=== PATIENT | male | born 1995 | race Caucasian/White ===

== ENCOUNTER 2020-05-14 09:48 | Outpatient (REF) | payer OTHER, SELFPAY ==
[2020-05-14 10:06] LABS: COVID-19 Test Negative (Negative)
== END 2020-05-14 09:49 | disposition home or self-care (01) ==
LOC: HO.LAB 09:48
PROVIDERS: Visit Provider Internal Medicine
DX: Z20.828 Contact with and (suspected) exposure to other viral communicable diseases (principal)
CPT/HCPCS: 87635

== ENCOUNTER 2020-05-18 10:30 | Outpatient (REF) | payer OTHER, SELFPAY ==
[2020-05-18 10:48] LABS: COVID-19 Test Negative (Negative)
== END 2020-05-18 10:31 | disposition home or self-care (01) ==
LOC: HO.LAB 10:30
PROVIDERS: Visit Provider Internal Medicine
DX: Z20.828 Contact with and (suspected) exposure to other viral communicable diseases (principal)
CPT/HCPCS: 87635

== ENCOUNTER 2020-07-24 13:03 | Outpatient (REF) | payer OTHER, SELFPAY ==
[2020-07-24 13:23] LABS: COVID-19 Test Negative (Negative); IDNOW Serial# 55D5AD1C
== END 2020-07-24 13:04 | disposition home or self-care (01) ==
LOC: HO.EMPCOV 13:03
PROVIDERS: Visit Provider Internal Medicine
DX: Z20.828 Contact with and (suspected) exposure to other viral communicable diseases (principal)
CPT/HCPCS: 87635; C9803

== ENCOUNTER 2020-08-23 14:38 | Emergency (ER) | payer OTHER, SELFPAY ==
--- NOTE | 2020-08-23 15:02 | XR_ITS ---
EXAMINATION: XR FOOT, LEFT CLINICAL INFORMATION: Pain. COMPARISON: None TECHNIQUE: AP, lateral, and oblique views of the left foot. FINDINGS: There is an oblique nondisplaced comminuted fracture proximal phalanx first digit mid to distal segment with likely extension to PIP articular surface. No other fracture seen. The ankle mortise and subtalar joints are normal. XR/XR foot LT min 3V IMPRESSION: Comminuted nondisplaced fracture mid and distal proximal phalanx fifth digit with likely extension to the PIP joint.
[2020-08-23 15:14] VITALS: BP 140/80; PULSE 68; RESP 18; TEMP 36.3; O2SAT 99; BMI 23.0
--- NOTE | 2020-08-23 15:31 | ED_ITS ---
HPI - Extremity Injury (Lower) General Chief Complaint: Extremity Injury, Lower Stated Complaint: left toe inj Time Seen by Provider: 08/23/20 15:02 Source: patient Mode of arrival: ambulatory Limitations: no limitations History of Present Illness HPI Narrative: Left great toe pain after stubbing it yesterday at home. Context: direct blow Associated symptoms: ambulatory Other symptoms: none Related Data Previous Rx's Medication Instructions Recorded lisdexamfetamine 20 mg capsule 20 mg PO DAILY #30 cap 05/13/20 dextroamphetamine-amphetamine 5 mg 5 mg PO DAILY 30 Days #30 tab 08/15/20 tablet ibuprofen 800 mg PO Q8H PRN #30 tab 08/23/20 Allergies Allergy/AdvReac Type Severity Reaction Status Date / Time No Known Allergies Allergy Verified 05/03/20 14:22 [No Known Allergies*] Review of Systems Review of Systems: Constitutional: Negative ENT/Mouth: Negative Cardiovascular: Negative Respiratory: Negative Gastrointestinal: Negative Musculoskeletal: No joint pain, No Myalgias, No Joint Swelling, as noted in HPI Skin: No Skin Lesions, No rash negative No Weakness, No Numbness, No Paresthesias, No Loss of Consciousness, No Dizziness, No Headache Heme/Lymph: Negative Endocrine: Negative Yes all other systems are reviewed and are negative PMFSH Past Medical History Medical History (Updated 08/23/20 @ 15:49 by Andrey Epstein NP) ADHD Surgical History (Updated 05/03/20 @ 14:23 by MIREYA Rodriguez) History of facial surgery Family History Family History (Updated 05/03/20 @ 14:24 by MIREYA Rodriguez) Father Substance abuse Mother Anxiety Sister Anxiety Brother Anxiety Depression Social History Social History Alcohol intake: unknown Smoking Status: Current every day smoker Use of substances other than those prescribed or required for medical reasons: No Advance Directives: No Advance Directives Information Provided: Yes Physical Exam Vital Signs: Vital Signs: Last Vital Signs Temp 97.4 F 08/23/20 15:14 Pulse 68 08/23/20 15:14 Resp 18 08/23/20 15:14 BP 140/80 H 08/23/20 15:14 Pulse Ox 99 08/23/20 15:14 Body Mass Index 23.0 Reviewed Const: General: cooperative and healthy appearing; No acute distress or intoxicated appearing Nutritional Appearance: average body habitus Orientation/consciousness: patient oriented x3 Skin: General skin exam: no rashes or lesions noted Neuro: General: patient oriented x3 Extrem: General: Yes normal to inspection Ankle/foot/toe images: 1. Slight ecchymosis MDM - Extremity Injury (Lower) Medical Records Attestation: I reviewed the patient's medical records. Lab Data Attestation: I reviewed the patient's lab results. Imaging Data Left foot x-ray: Radiologist's impression: [address] [address] ReportSigned Patient: Silverio PateMR#: [id number]: [id number]:[id number]/Sex: 25 / MADM Date: 08/23/20Loc: [facility].EDAttending Dr: Ordering Physician: Chanel Couch DO Date of Service: 08/23/20 Procedure(s): XR foot LT min 3V Accession Number(s): [id number] cc: Chanel Couch DO~ EXAMINATION: XR FOOT, LEFT CLINICAL INFORMATION: Pain. COMPARISON: None TECHNIQUE: AP, lateral, and oblique views of the left foot. FINDINGS: There is an oblique nondisplaced comminuted fracture proximal phalanx first digit mid to distal segment with likely extension to PIP articular surface. No other fracture seen. The ankle mortise and subtalar joints are normal. XR/XR foot LT min 3V IMPRESSION: Comminuted nondisplaced fracture mid and distal proximal phalanx fifth digit with likely extension to the PIP joint. Dictated By:GURMEET VERA MDSigned By:<Electronically signed by GURMEET VERA MD in OV>08/23/20 1529 DD/ 1502TD/TT: Criminalist Technician: [facility] [place] Discharge Plan Discharge Clinical Impression: Fracture of toe of left foot Qualifiers: Encounter type: initial encounter Toe: great toe Fracture type: closed Phalanx: distal Fracture alignment: nondisplaced Qualified Code(s): S92.425A - Nondisplaced fracture of distal phalanx of left great toe, initial encounter for closed fracture Patient Disposition: Home, Self-Care Instructions: Toe Fracture (ED) Prescriptions: New ibuprofen 800 mg tablet 800 mg PO Q8H PRN (Reason: pain) Qty: 30 RF: 0 No Action Vyvanse 20 mg capsule 20 mg PO DAILY Qty: 30 RF: 0 dextroamphetamine-amphetamine [Adderall] 5 mg tablet 5 mg PO DAILY 30 Days Qty: 30 RF: 0 Referrals: Nely Wayne MD [Physician] - 2 days Stand Alone Forms: Work/School Release
--- NOTE | 2020-08-23 15:52 | PC.NURSE ---
POST-OP SHOE APPLIED TO L FOOT
== END 2020-08-23 15:57 | disposition home or self-care (01) ==
PROVIDERS: Emergency Provider Emergency Medicine; PCP Nurse Practitioner Family
DX: S92.425A Nondisplaced fracture of distal phalanx of left great toe, initial encounter for closed fracture (principal); M79.672 Pain in left foot; Y29.XXXA Contact with blunt object, undetermined intent, initial encounter; Y93.9 Activity, unspecified; Y92.009 Unspecified place in unspecified non-institutional (private) residence as the place of occurrence of the external cause; Y99.9 Unspecified external cause status; Z79.899 Other long term (current) drug therapy; F17.200 Nicotine dependence, unspecified, uncomplicated; Z71.6 Tobacco abuse counseling
CPT/HCPCS: 73630; 99283

== ENCOUNTER → 2021-09-29 09:57 | Outpatient (BNVA) | payer OTHER, SELFPAY | PROVIDERS: Visit Provider Internal Medicine | DX: Z51.81 Encounter for therapeutic drug level monitoring (principal); F11.20 Opioid dependence, uncomplicated | CPT/HCPCS: 80305 ==

== ENCOUNTER → 2021-10-06 10:23 | Outpatient (BNVA) | payer OTHER, SELFPAY | PROVIDERS: Visit Provider Internal Medicine | DX: F11.20 Opioid dependence, uncomplicated (principal); Z51.81 Encounter for therapeutic drug level monitoring; Z79.899 Other long term (current) drug therapy | CPT/HCPCS: 80305 ==

== ENCOUNTER → 2021-10-15 10:43 | Outpatient (BNVA) | payer OTHER, SELFPAY | PROVIDERS: Visit Provider Internal Medicine | DX: Z51.81 Encounter for therapeutic drug level monitoring (principal); F11.20 Opioid dependence, uncomplicated | CPT/HCPCS: 80305 ==

== ENCOUNTER → 2021-10-29 10:48 | Outpatient (BNVA) | payer OTHER, SELFPAY | PROVIDERS: Visit Provider Internal Medicine | DX: F11.20 Opioid dependence, uncomplicated (principal); Z51.81 Encounter for therapeutic drug level monitoring; Z79.899 Other long term (current) drug therapy | CPT/HCPCS: 80305 ==

== ENCOUNTER → 2021-11-18 11:16 | Outpatient (BNVA) | payer OTHER, SELFPAY | PROVIDERS: Visit Provider Internal Medicine | DX: Z51.81 Encounter for therapeutic drug level monitoring (principal); F11.20 Opioid dependence, uncomplicated | CPT/HCPCS: 80305 ==

== ENCOUNTER → 2021-12-17 11:42 | Outpatient (BNVA) | payer OTHER, SELFPAY | PROVIDERS: Visit Provider Internal Medicine | DX: Z51.81 Encounter for therapeutic drug level monitoring (principal); F11.20 Opioid dependence, uncomplicated | CPT/HCPCS: 80305 ==

== ENCOUNTER → 2022-01-13 11:46 | Outpatient (BNVA) | payer OTHER, SELFPAY | PROVIDERS: Visit Provider Internal Medicine | DX: Z51.81 Encounter for therapeutic drug level monitoring (principal); F11.20 Opioid dependence, uncomplicated | CPT/HCPCS: 80305 ==

== ENCOUNTER → 2022-02-10 10:47 | Outpatient (BNVA) | payer OTHER, SELFPAY | PROVIDERS: Visit Provider Internal Medicine | DX: F11.20 Opioid dependence, uncomplicated (principal); Z51.81 Encounter for therapeutic drug level monitoring; Z79.899 Other long term (current) drug therapy | CPT/HCPCS: 80305 ==

== ENCOUNTER 2022-04-14 17:26 | Emergency (ER) | payer OTHER, SELFPAY ==
--- NOTE | ~2022-04-14 | XR_ITS ---
EXAMINATION: XR foot RT 2V, XR ankle RT 2V CLINICAL INFORMATION: Reason for Exam Foot and ankle pain. landing hard from high pole COMPARISON: None. TECHNIQUE: AP and oblique views right ankle; 3 views right foot FINDINGS: Right ankle: No acute fracture or dislocation. Ankle mortise is congruent and intact. Ankle and subtalar joint spaces are maintained. Right foot: No acute fracture or dislocation. Joint spaces throughout the foot are maintained. Alignment at Lisfranc joint is within normal limits. Small focus of chronic proliferative bone at the anterior lip of the tibial plafond noted on the lateral view. XR/XR foot RT 2V IMPRESSION: No acute fracture or dislocation identified.
--- NOTE | ~2022-04-14 | XR_ITS ---
EXAMINATION: XR foot RT 2V, XR ankle RT 2V CLINICAL INFORMATION: Reason for Exam Foot and ankle pain. landing hard from high pole COMPARISON: None. TECHNIQUE: AP and oblique views right ankle; 3 views right foot FINDINGS: Right ankle: No acute fracture or dislocation. Ankle mortise is congruent and intact. Ankle and subtalar joint spaces are maintained. Right foot: No acute fracture or dislocation. Joint spaces throughout the foot are maintained. Alignment at Lisfranc joint is within normal limits. Small focus of chronic proliferative bone at the anterior lip of the tibial plafond noted on the lateral view. XR/XR ankle RT 2V IMPRESSION: No acute fracture or dislocation identified.
[2022-04-14 17:37] VITALS: BP 137/82; PULSE 66; O2SAT 98
[2022-04-14 17:41] VITALS: BMI 23.0
--- NOTE | 2022-04-14 17:47 | ED.GENADULT ---
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 patietn had fire alarm repairer protective boots and helmet. patient denies hitting head or loss of consciousness. Patient denies any other trauma. Related Data Previous Rx's Medication Instructions Recorded lisdexamfetamine 20 mg capsule 20 mg PO DAILY #30 caps 05/13/20 (Vyvanse) dextroamphetamine-amphetamine 5 mg 5 mg PO DAILY 30 days #30 tabs 08/15/20 tablet (Adderall) ibuprofen 800 mg tablet 800 mg PO Q8H PRN pain #30 tabs 08/23/20 buprenorphine 300 mg/1.5 mL 300 mg (1.5 mL) subcut ONCE 30 03/23/22 solution,exten.rel.subcutaneous days #1.5 mL syringe (Sublocade) buprenorphine 8 mg-naloxone 2 mg 1 film sublingual DAILY 30 days 03/23/22 sublingual film (Suboxone) #30 ea naproxen 500 mg tablet 500 mg PO BID PRN pain 7 days #14 04/14/22 tabs prednisone 20 mg tablet 60 mg PO DAILY 5 days #15 tabs 04/14/22 Allergies Allergy/AdvReac Type Severity Reaction Status Date / Time No Known Allergies Allergy Verified 12/17/21 11:47 [No Known Allergies*] Review of Systems Review of Systems: Right ankle/foot pain PMFSH Past Medical History Medical History ADHD Opioid use disorder Surgical History History of facial surgery Family History Family History Father Substance abuse Mother Anxiety Sister Anxiety Brother Anxiety Depression Social History Social History Alcohol intake: unknown Patient Tobacco Use Status: Former Tobacco user Advance Directives: No Advance Directives Information Provided: Yes Physical Exam ED Vital Signs: Vital Signs - 24 hr 04/14/22 17:37 Pulse Rate 66 Blood Pressure 137/82 Pulse Oximetry 98 Oxygen Delivery Method Room Air BMI result Body Mass Index 23.0 Const General: cooperative, healthy appearing, comfortable, no acute distress, well developed and alert Orientation/consciousness: oriented to time and patient oriented x3 HENMT Head: Yes normal to inspection, Yes No palpable skull fracture present, Yes normocephalic, Yes atraumatic and No abrasion Eyes General: appearance normal, both eyes and all related structures Neck Neck: Yes normal visual inspection, Yes full ROM, Yes no lymphadenopathy, Yes no meningeal signs, Yes trachea midline, Yes supple, No anterior neck swelling and No tender Chest Chest palpation & inspection: normal inspection of the chest and normal palpation of entire chest wall Resp Effort & Inspection: normal respiratory effort and able to speak in complete sentences Auscultation: clear to auscultation bilaterally Cardio Jugular venous distension: no JVD Heart sounds: S1 normal heart sound present and S2 normal heart sound present GI Inspection: Yes normal to inspection and No abdominal wall ecchymosis Palpation (GI): Soft to palpation, not firm, nontender, no guarding and not rigid General: No CVA tenderness and Yes no CVA tenderness Back/Spine/Pelvis Back: no CVA tenderness, No CVA tenderness and No back tenderness Skin General skin exam: no rashes or lesions noted and elasticity normal Neuro General: oriented to time, patient oriented x3, gait normal, tone normal, no meningeal signs and CN's II-XI intact bilaterally Cranial nerves: Yes CN's II-XII intact bilaterally Extrem General: Yes normal to inspection and Yes full ROM Ankle/foot/toe images: 1. tenderness on palpation. negative for any crepitus, ecchymosis, or deformity. Motor/ neuro/vascular exam intact. Patient able to walk Psych Appearance: grossly normal, well kempt and not disheveled Course Course Course Narrative: Sent for xray of right ankle/foot Reevaluation(s) Reevaluation #1: Patient placed in Nic wrap. Patient discharged with steroids and pain medication. Patient informed to follow-up with primary care provider if there is no improvement or pain worsens. Time: 19:17 Medical Decision Making [facility] Narrative Medical decision making narrative: ankle/foot sprain Discharge Plan Discharge Clinical Impression: Ankle sprain, Foot sprain Patient Disposition: Home, Self-Care Instructions: Ankle Sprain (ED), Sprain (ED), How to Use an Elastic Bandage (ED), Foot Sprain (ED), R.I.C.E. Treatment (ED) Additional Instructions: return to the ED immediately for any swelling, bluish black discoloration, redness, numbness / tingling, coolness, warmth, calf pain, leg swelling, chest pain, shortness of breath, or any other concerning symptoms. Recommend follow-up with primary care provider if there is no improvement. Prescriptions: New prednisone 20 mg tablet 60 mg PO DAILY 5 Days Qty: 15 0RF naproxen 500 mg tablet 500 mg PO BID PRN (Reason: pain) 7 Days Qty: 14 0RF No Action Vyvanse 20 mg capsule 20 mg PO DAILY Qty: 30 0RF dextroamphetamine-amphetamine [Adderall] 5 mg tablet 5 mg PO DAILY 30 Days Qty: 30 0RF ibuprofen 800 mg tablet 800 mg PO Q8H PRN (Reason: pain) Qty: 30 0RF buprenorphine-naloxone [Suboxone] 8-2 mg film 1 film sublingual DAILY 30 Days Qty: 30 0RF Sublocade 300 mg/1.5 mL solution, extended rel syringe 300 mg subcut ONCE 30 Days Qty: 1.5 1RF Referrals: [facility] [Outside] (Right ankle/foot sprain) Stand Alone Forms: Work/School Release Interventions: ED Discharge Assessment Last Done: 04/14/22 19:44 Discharge Date/Time: 04/14/22 19:45 Print Language: Congolese
== END 2022-04-14 19:45 | disposition home or self-care (01) ==
PROVIDERS: Emergency Provider Emergency Medicine
DX: S93.401A Sprain of unspecified ligament of right ankle, initial encounter (principal); M25.572 Pain in left ankle and joints of left foot; X50.1XXA Overexertion from prolonged static or awkward postures, initial encounter; Y93.9 Activity, unspecified; Y92.9 Unspecified place or not applicable; Y99.0 Civilian activity done for income or pay; Z79.899 Other long term (current) drug therapy; Z87.891 Personal history of nicotine dependence
CPT/HCPCS: 73600; 73620; 99283

== ENCOUNTER → 2022-04-21 10:30 | Outpatient (BNVA) | payer OTHER, SELFPAY | PROVIDERS: Visit Provider Internal Medicine | DX: Z51.81 Encounter for therapeutic drug level monitoring (principal); F11.20 Opioid dependence, uncomplicated | CPT/HCPCS: 99212 ==

== ENCOUNTER → 2022-05-05 10:44 | Outpatient (BNVA) | payer OTHER, SELFPAY | PROVIDERS: Visit Provider Internal Medicine | DX: Z51.81 Encounter for therapeutic drug level monitoring (principal); F11.90 Opioid use, unspecified, uncomplicated | CPT/HCPCS: 96372; 99212 ==

== ENCOUNTER → 2022-06-02 13:02 | Outpatient (BNVA) | payer OTHER, SELFPAY | PROVIDERS: Visit Provider Internal Medicine | DX: F11.20 Opioid dependence, uncomplicated (principal); Z51.81 Encounter for therapeutic drug level monitoring; Z79.899 Other long term (current) drug therapy | CPT/HCPCS: 96372; 99212 ==

== ENCOUNTER → 2022-07-06 11:13 | Outpatient (BNVA) | payer OTHER, SELFPAY | PROVIDERS: Visit Provider Internal Medicine | DX: F11.20 Opioid dependence, uncomplicated (principal) | CPT/HCPCS: 96372; 99212 ==

== ENCOUNTER → 2022-08-05 08:58 | Outpatient (BNVA) | payer OTHER, SELFPAY | PROVIDERS: Visit Provider Nurse Practitioner Psychiatric/Mental Health | DX: F11.21 Opioid dependence, in remission (principal); Z51.81 Encounter for therapeutic drug level monitoring; Z79.899 Other long term (current) drug therapy | CPT/HCPCS: 80305; 96372 ==

== ENCOUNTER → 2022-09-02 09:01 | Outpatient (BNVA) | payer OTHER, SELFPAY | PROVIDERS: Visit Provider Nurse Practitioner Psychiatric/Mental Health | DX: Z51.81 Encounter for therapeutic drug level monitoring (principal); F11.21 Opioid dependence, in remission | CPT/HCPCS: 80305; 96372 ==

== ENCOUNTER 2022-09-23 10:04 | Outpatient (REF) | payer OTHER, SELFPAY ==
[2022-09-23 11:26] LABS: Alanine Aminotransferase 35 U/L (0-40); Albumin Level 4.6 g/dL (3.5-5.0); Alkaline Phosphatase 75 U/L (39-117); Aspartate Amino Transferase 29 U/L (5-37); Bilirubin Direct 0.2 mg/dL (0.0-0.5); Bilirubin Total 0.8 mg/dL (0.0-1.0); Total Protein 6.9 g/dL (6.5-8.0)
== END 2022-09-23 10:05 | disposition home or self-care (01) ==
LOC: HO.LAB 10:04
PROVIDERS: Visit Provider Nurse Practitioner Psychiatric/Mental Health
DX: Z79.899 Other long term (current) drug therapy (principal)
CPT/HCPCS: 36415; 80076

== ENCOUNTER → 2022-09-30 09:17 | Outpatient (BNVA) | payer OTHER, SELFPAY | PROVIDERS: Visit Provider Nurse Practitioner Psychiatric/Mental Health | DX: Z51.81 Encounter for therapeutic drug level monitoring (principal); F11.21 Opioid dependence, in remission | CPT/HCPCS: 80305; 96372 ==

== ENCOUNTER → 2022-10-30 08:53 | Outpatient (BNVA) | payer OTHER, SELFPAY | PROVIDERS: Visit Provider Nurse Practitioner Psychiatric/Mental Health | DX: F11.21 Opioid dependence, in remission (principal); Z51.81 Encounter for therapeutic drug level monitoring; Z79.899 Other long term (current) drug therapy | CPT/HCPCS: 80305; 96372 ==

== ENCOUNTER → 2022-12-17 11:12 | Outpatient (BNVA) | payer OTHER, SELFPAY | PROVIDERS: Visit Provider Nurse Practitioner Psychiatric/Mental Health | DX: F11.21 Opioid dependence, in remission (principal) | CPT/HCPCS: 96372 ==

== ENCOUNTER 2023-02-08 10:00 | Outpatient (AMB) | payer OTHER, SELFPAY ==
--- NOTE | 2023-02-08 10:02 | MHC.OFFVIS ---
Intake Vital Signs 02/08/23 10:06 BP 136/84 Blood Pressure Location Lt radial Position Sitting Pulse 93 Pulse Source Pulse Oximeter Pulse Oximetry (%) 98 Oxygen Delivery Method Room Air Intake Visit Reasons: SUB inj Intake Note: the patient is here for a mat visit Reconciliation Manager Required: No Allergies No Known Allergies [No Known Allergies*] Allergy (Verified 02/08/23 10:07) Do you need a note to return to daycare/school/sports/work: No HPI SUB inj HPI Details Patient presents for follow-up. Last injection December 17. Patient denies any withdrawal symptoms. Denies any cravings. Does not wish to have injection today would like to continue to move forward without it. Agreeable to continued follow-up for the next few months. Patient reports that he has a few leftover Suboxone at home and feels confident just knowing that he has those there should any issues arise. Very happy to share the of his daughter 1 month ago. [facility] Medical History ADHD Opioid use disorder Surgical History History of facial surgery Family History Father Substance abuse Mother Anxiety Sister Anxiety Brother Anxiety Depression Social History Alcohol intake: unknown Patient Tobacco Use Status: Former Tobacco user Review of Systems Const Reports as per HPI and Reports no additional complaints Physical Exam Vital Signs: Last Vital Signs Pulse 93 02/08/23 10:06 BP 136/84 02/08/23 10:06 Pulse Ox 98 02/08/23 10:06 Oxygen Delivery Method Room Air 02/08/23 10:06 Const General: cooperative and healthy appearing Psych Appearance: well kempt Speech and movement: Clear speech present Attitude: cooperative Thought process: Normal thought process present Insight: Good insight present (Psych) Judgement: Good judgement present (Psych) Results AMB 14 Panel Urine Drug Screen Urine Marijuana (THC) Negative Last Edit by Julianna Fischer CMA on 02/08/23 10:14 Urine Cocaine Positive Last Edit by Julianna Fischer CMA on 02/08/23 10:14 Urine Morphine Negative Last Edit by Julianna Fischer CMA on 02/08/23 10:14 Urine Methamphetamine Negative Last Edit by Julianna Fischer CMA on 02/08/23 10:14 Urine Amphetamine Negative Last Edit by Julianna Fischer CMA on 02/08/23 10:14 Urine Benzodiazepine Negative Last Edit by Julianna Fischer CMA on 02/08/23 10:14 Urine Barbiturates Negative Last Edit by Julianna Fischer CMA on 02/08/23 10:14 Urine Methadone Negative Last Edit by Julianna Fischer CMA on 02/08/23 10:14 Urine Buprenorphine Positive Last Edit by Julianna Fischer CMA on 02/08/23 10:14 Urine Tricyclic Antidepressant Negative Last Edit by Julianna Fischer CMA on 02/08/23 10:14 Urine MDMA Negative Last Edit by Julianna Fischer CMA on 02/08/23 10:14 Urine Oxycodone Negative Last Edit by Julianna Fischer CMA on 02/08/23 10:14 Urine Phencyclidine Negative Last Edit by Julianna Fischer CMA on 02/08/23 10:14 Urine Propoxyphene Negative Last Edit by Julianna Fischer CMA on 02/08/23 10:14 Results Reviewed Results Reviewed: Laboratory Last Values POC Urine Buprenorphine Positive 02/08/23 10:11 POC Urine Morphine Negative 02/08/23 10:11 POC Urine Oxycodone Negative 02/08/23 10:11 POC Urine Methadone Negative 02/08/23 10:11 POC Urine Propoxyphene Negative 02/08/23 10:11 POC Urine Barbiturates Negative 02/08/23 10:11 POC U Tricyclic Antidpr Negative 02/08/23 10:11 POC Urine PCP Negative 02/08/23 10:11 POC Ur Amphetamines Negative 02/08/23 10:11 POC Ur Methamphetamine Negative 02/08/23 10:11 POC Urine MDMA Negative 02/08/23 10:11 POC Ur Benzodiazepine Negative 02/08/23 10:11 POC Urine Cocaine Positive 02/08/23 10:11 POC Ur Marijuana (THC) Negative 02/08/23 10:11 Assessment & Plan Assessment & Plan (1) Opioid use disorder, moderate, in sustained remission: Code(s): F11.21 - Opioid dependence, in remission Plan: Follow-up 2 months via telehealth Encourage patient to call office should he need to be seen before then or present to the walk-in Relapse prevention discussion Orders: Orders AMB 14 Panel Urine Drug Screen Today Z51.81 - Encounter for therapeutic drug level monitoring Coding Level of Care Code Est Pt Level 3 (39802) Diagnoses Opioid use disorder, moderate, in sustained remission F11.21
[2023-02-08 10:06] VITALS: BP 136/84; PULSE 93; O2SAT 98
== END 2023-02-08 10:38 | disposition home or self-care (01) ==
PROVIDERS: Visit Provider Nurse Practitioner Psychiatric/Mental Health
DX: Z51.81 Encounter for therapeutic drug level monitoring (principal); F11.21 Opioid dependence, in remission
CPT/HCPCS: 99213

== ENCOUNTER → 2023-02-08 10:00 | Outpatient (BNVA) | payer OTHER, SELFPAY | PROVIDERS: Visit Provider Nurse Practitioner Psychiatric/Mental Health | DX: F11.20 Opioid dependence, uncomplicated (principal); Z51.81 Encounter for therapeutic drug level monitoring | CPT/HCPCS: 80305 ==

== ENCOUNTER 2023-04-05 09:00 | Outpatient (AMB) | payer OTHER, SELFPAY ==
--- NOTE | 2023-04-05 09:00 | MHC.AM.SUB ---
Intake Intake Visit Reasons: MAT Visit Intake Note: Patient presents for telehealth follow up Last sublocade injection 4 months ago. Denies any withdrawal sx, denies anxiety. Grateful for ease of transition off of buprenorphine No questions or concerns at this time Allergies No Known Allergies [No Known Allergies*] Allergy (Verified 02/08/23 10:07) [facility] Medical History ADHD Opioid use disorder Surgical History History of facial surgery Family History Father Substance abuse Mother Anxiety Sister Anxiety Brother Anxiety Depression Social History Alcohol intake: unknown Patient Tobacco Use Status: Former Tobacco user Review of Systems Const Reports as per HPI and Reports no additional complaints Assessment & Plan Assessment & Plan (1) Opioid use disorder, moderate, in sustained remission: Code(s): F11.21 - Opioid dependence, in remission Plan: encouraged to call office with any questions or concers follow up 2 months via telehealth Telehealth Telehealth Location of provider rendering services: practice address Location of patient: address on file Patient Identification confirmed using: Name, : Yes Telehealth method: voice only Patient verbally consented to treatment: Yes Patient verbally consented to billing insurance company: Yes Coding Level of Care Code Tele Est Pt Level 3 (41326) Diagnoses Opioid use disorder, moderate, in sustained remission F11.21
== END 2023-04-05 09:14 | disposition home or self-care (01) ==
LOC: HO.HCC 09:00
PROVIDERS: Visit Provider Nurse Practitioner Psychiatric/Mental Health
DX: F11.21 Opioid dependence, in remission (principal)
CPT/HCPCS: 99213

== ENCOUNTER → 2023-04-05 09:00 | Outpatient (BNVA) | payer OTHER, SELFPAY | PROVIDERS: Visit Provider Nurse Practitioner Psychiatric/Mental Health | DX: Z51.81 Encounter for therapeutic drug level monitoring (principal) ==

== ENCOUNTER 2023-06-14 09:04 | Outpatient (AMB) | payer OTHER, SELFPAY ==
--- NOTE | 2023-06-14 09:07 | MHC.AM.SUB ---
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 Opioid use disorder ADHD Surgical History History of facial surgery Family History Father Substance abuse Mother Anxiety Sister Anxiety Brother Anxiety Depression Social History Alcohol intake: unknown Patient Tobacco Use Status: Former Tobacco user Review of Systems Const Reports as per HPI and Reports no additional complaints Assessment & Plan Assessment & Plan (1) Opioid use disorder, moderate, in sustained remission: Code(s): F11.21 - Opioid dependence, in remission Plan: follow up 6 months encouraged to call office before then if necessary Telehealth Telehealth Location of provider rendering services: practice address Location of patient: address on file Patient Identification confirmed using: Name, : Yes Telehealth method: voice only Patient verbally consented to treatment: Yes Patient verbally consented to billing insurance company: Yes Coding Level of Care Code Tele Est Pt Level 3 (34910) Diagnoses Opioid use disorder, moderate, in sustained remission F11.21 Time Spent (min) 20
== END 2023-06-14 09:24 | disposition home or self-care (01) ==
LOC: HO.HCC 09:04
PROVIDERS: Visit Provider Nurse Practitioner Psychiatric/Mental Health
DX: F11.21 Opioid dependence, in remission (principal)
CPT/HCPCS: 99213

== ENCOUNTER → 2023-06-14 09:04 | Outpatient (BNVA) | payer OTHER, SELFPAY | PROVIDERS: Visit Provider Nurse Practitioner Psychiatric/Mental Health | DX: Z51.81 Encounter for therapeutic drug level monitoring (principal); F11.21 Opioid dependence, in remission ==

== ENCOUNTER 2025-01-12 10:55 | Outpatient (AMB) | payer OTHER, SELFPAY ==
--- NOTE | 2025-01-12 10:57 | A.OFFVIS_ITS ---
Vital Signs 01/12/25 11:02 Height 6 ft Weight 223 lb BMI 30.2 Pulse 95 Pulse Source Pulse Oximeter Pulse Oximetry (%) 97 Oxygen Delivery Method Room Air Intake Visit Reasons: MAT Allergies No Known Allergies (No Known Allergies*) Allergy (Verified 01/19/25 10:58) HPI HPI MAT: Details: This is an intake ,returning patient. He had been on Suboxone then Sublocade and now has been using Kratom extract two to three months ago and has $7,000 bill over last three months due to it. He ran out and has withdrawal symptoms. 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 He says doesnt know yet. He stopped using it. 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 ADHD Surgical History History of facial surgery Family History Father Substance abuse Mother Anxiety Sister Anxiety Brother Anxiety Depression Social History Alcohol intake: unknown Patient Tobacco Use Status: Former Tobacco user Review of Systems Const All systems reviewed & are unremarkable except as noted in HPI and below Physical Exam Vital Signs: Last Vital Signs Pulse 95 01/12/25 11:02 Pulse Ox 97 01/12/25 11:02 Oxygen Delivery Method Room Air 01/12/25 11:02 BMI result Body Mass Index 30.2 Const General: cooperative Orientation/consciousness: patient oriented x3 HEENT Head: Yes normal to inspection Mouth: Normal oral and palatal mucosa present Eyes General: appearance normal, both eyes and all related structures Pupils: Equal, round and reactive pupils present Resp Effort & Inspection: normal respiratory effort Cardio Rate: regular rate Rhythm: regular rhythm GI Palpation (GI): Soft to palpation and nontender General: Yes no CVA tenderness Back/Spine/Pelvis Back: no CVA tenderness Skin General skin exam: no rashes or lesions noted Neuro General: patient oriented x3 Cranial nerves: Yes CN's II-XII intact bilaterally and Yes Equal, round and reactive pupils present Extrem General: Yes normal to inspection Psych Appearance: grossly normal Assessment & Plan Assessment & Plan (1) ADHD: Code(s): F90.9 - Attention-deficit hyperactivity disorder, unspecified type Category: Medical Plan: na (2) Opioid use disorder: Comment: He is looking to get back into Suboxone Code(s): F11.90 - Opioid use, unspecified, uncomplicated Category: Medical Plan: Suboxone tid as before. Counseling See as scheduled. Medications: New buprenorphine-naloxone 8-2 mg (Suboxone) 1 film sublingual TID 21 ea 0RF 7 days Coding Level of Care Code Est Pt Level 4 (83073) Diagnoses ADHD F90.9 Opioid use disorder F11.90
[2025-01-12 11:02] VITALS: PULSE 95; O2SAT 97; BMI 30.2
--- OUTSIDE RECORDS SUMMARY | 2025-01-12 11:21 | XMS_ITS | Encounter Summary ---
Author Organization [facility] Address [address] [place] [address] Phone Care Team Providers Care Custom Wood Stair Builder Name Role Phone Holger Hamilton MD Primary Care Provider Atul matthews Encounter Details Date Type Department Care Team (Late st Contact Info) Description 05/29/2011 Documentation [facility] Family Medicine [address] [place] [address] Family Medicine, Physician [address] [place], [place] [id number] Social History Tobacco Use Types Packs/Day Years Used Date Smoking Tobacco: Never Assessed Sex and Gender Information Value Date Recorded Sex Assigned at Not on file Legal Sex Male 4:52 PM EDT Gender Identity Not on file Sexual Orientation Not on file documented as of this encounter Plan of Treatment Not on file documented as of this encounter Visit Diagnoses Not on filedocumented in this encounter Care Teams Custom Wood Stair Builder Relationship Specialty Start Date End Date Holger Hamilton MD PCP - General 03/05/17 11/01/22 documented as of this encounter
== END 2025-01-12 11:53 | disposition home or self-care (01) ==
LOC: HO.HCC 10:55
PROVIDERS: Visit Provider Internal Medicine
DX: F90.9 Attention-deficit hyperactivity disorder, unspecified type (principal); F11.90 Opioid use, unspecified, uncomplicated
CPT/HCPCS: 99214

== ENCOUNTER 2025-01-19 10:56 | Outpatient (AMB) | payer OTHER, SELFPAY ==
--- NOTE | 2025-01-19 10:54 | A.OFFVIS_ITS ---
Vital Signs 01/19/25 10:58 Height 6 ft Pulse 84 Pulse Source Pulse Oximeter Pulse Oximetry (%) 98 Oxygen Delivery Method Room Air Intake Visit Reasons: MAT Allergies No Known Allergies (No Known Allergies*) Allergy (Verified 01/19/25 10:58) HPI HPI MAT: Details: He is here with his daughter,Toni. He has been doing well. FOR[facility]LY [facility], [facility] Medical History Opioid use disorder Other alf (current) drug therapy ADHD Surgical History History of facial surgery Family History Father Substance abuse Mother Anxiety Sister Anxiety Brother Anxiety Depression Social History Alcohol intake: unknown Patient Tobacco Use Status: Former Tobacco user Review of Systems Const All systems reviewed & are unremarkable except as noted in HPI and below Physical Exam Vital Signs: Last Vital Signs Pulse 84 01/19/25 10:58 Pulse Ox 98 01/19/25 10:58 Oxygen Delivery Method Room Air 01/19/25 10:58 Const General: cooperative Assessment & Plan Assessment & Plan (1) Opioid use disorder: Comment: He is doing well with suboxone He is not using kratom. Code(s): F11.90 - Opioid use, unspecified, uncomplicated Category: Medical Plan: Would continue Suboxone Plan See as scheduled. Medications: New buprenorphine ER (Sublocade) 300 mg (1.5 mL) subcut QWEEK 1.5 mL 0RF buprenorphine-naloxone 8-2 mg (Suboxone) 1 film sublingual TID 90 ea 0RF 30 days buprenorphine ER (Sublocade) 300 mg (1.5 mL) subcut .monthly 1.5 mL 0RF buprenorphine ER (Sublocade) 300 mg (1.5 mL) subcut .monthly 1.5 mL 0RF 2 doses Coding Level of Care Code Est Pt Level 3 (39406) Diagnoses Opioid use disorder F11.90
[2025-01-19 10:58] VITALS: PULSE 84; O2SAT 98
--- OUTSIDE RECORDS SUMMARY | 2025-01-19 12:04 | XMS_ITS | Encounter Summary ---
Author Organization [facility] Address [address] [place] [address] Phone Care Team Providers Care Lactation Specialist Name Role Phone Holger Hamilton MD Primary Care Provider Atul matthews Encounter Details Date Type Department Care Team (Late st Contact Info) Description 05/29/2011 Documentation [facility] [place] [address] [place] [address] Family Medicine, Physician [address] [place], [place] [id number] Social History Tobacco Use Types Packs/Day Years [...] on filedocumented in this encounter Care Teams Lactation Specialist Relationship Specialty Start Date End Date Holger Hamilton MD PCP - General 03/05/17 11/01/22 documented as of this encounter
== END 2025-01-19 11:25 | disposition home or self-care (01) ==
LOC: HO.HCC 10:56
PROVIDERS: Visit Provider Internal Medicine
DX: F11.90 Opioid use, unspecified, uncomplicated (principal)
CPT/HCPCS: 99213

== ENCOUNTER 2025-02-19 10:12 | Outpatient (AMB) | payer OTHER, SELFPAY ==
[2025-02-19 10:17] VITALS: PULSE 108; O2SAT 98; BMI 30.1
--- NOTE | 2025-02-19 10:17 | A.OFFVIS_ITS ---
Vital Signs 02/19/25 10:17 Height 6 ft Weight 222 lb BMI 30.1 Pulse 108 H Pulse Source Pulse Oximeter Pulse Oximetry (%) 98 Oxygen Delivery Method Room Air Intake Visit Reasons: Injection Allergies No Known Allergies (No Known Allergies*) Allergy (Verified 02/19/25 10:18) HPI Comments Details: Unfortunately he has gone back to using kratom and is spending lots of money on it. He took kratom yesterday and a suboxone today [facility] Medical History Opioid use disorder Other senior living (current) drug therapy ADHD Surgical History History of facial surgery Family History Father Substance abuse Mother Anxiety Sister Anxiety Brother Anxiety Depression Social History Alcohol intake: unknown Patient Tobacco Use Status: Former Tobacco user Review of Systems Const All systems reviewed & are unremarkable except as noted in HPI and below Physical Exam Vital Signs: Last Vital Signs Pulse 108 H 02/19/25 10:17 Pulse Ox 98 02/19/25 10:17 Oxygen Delivery Method Room Air 02/19/25 10:17 BMI result Body Mass Index 30.1 Const General: cooperative Office Meds Sublocade 300 mg/1.5 mL solution,extended release subcutaneous syringe Performing Provider: Fátima Flores MD Performing Location: [facility] Documented (not given) by: Fátima Flores MD on 02/19/25 16:35 Reason Not Given: Patient Contraindications Comments: Lot [id number],10/24/2025 [id number] Assessment & Plan Assessment & Plan (1) Opioid use disorder: Comment: He is using kratom . Code(s): F11.90 - Opioid use, unspecified, uncomplicated Category: Medical Plan: No Sublocade today. It was returned to pharmacy. He will get this when stable on Suboxone. Orders: Orders AMB Buprenorphine Injection - Patient Supplied 02/19/25 F11.90 - Opioid use, unspecified, uncomplicated Referrals Counseling Referral F11.90 - Opioid use, unspecified, uncomplicated Medications: New buprenorphine-naloxone 8-2 mg (Suboxone) 1 film sublingual TID 21 ea 0RF 7 days Coding Level of Care Code Est Pt Level 3 (07216) Diagnoses Opioid use disorder F11.90
--- OUTSIDE RECORDS SUMMARY | 2025-02-19 11:15 | XMS_ITS | Encounter Summary ---
Author Organization [facility] Address [address] [place] [address] Phone Care Team Providers Care Medical Assistant Name Role Phone Holger Hamilton MD Primary Care Provider Atul matthews Encounter Details Date Type Department Care Team (Late st Contact Info) Description 05/29/2011 Documentation [facility] [place] Family Medicine [address] [place] [address] Family Medicine, Physician [address] [place], [place] [address] Social History Tobacco Use Types Packs/Day Years [...] on filedocumented in this encounter Care Teams Medical Assistant Relationship Specialty Start Date End Date Holger Hamilton MD PCP - General 03/05/17 11/01/22 documented as of this encounter
--- OUTSIDE RECORDS SUMMARY | 2025-02-19 11:15 | XMS_ITS | Clinical Summary ---
Author Organization [facility] Address [address] [facility] [address] [place] [address] Phone Care Team Providers Care Back Feeder Plywood Layup Line Name Role Phone Simon Price MD Primary Care Provider [phone] Allergies No known active allergies Medications No known medications Active Problems Problem Noted Date Diagnosed Date Routine general medical exam ination at a health care facility 06/25/2023 Assessment & Plan (06/26/2024 2:07 PM EST): Exam is unremarkable, normal height and weight with muscular build. BMI appears to be somewhat over stated. Labs reviewed from last year and found to be within target range on lipid panel electrolytes kidney function blood sugar and blood counts. Since he does not have any symptoms we can hold off on lab work today and review in 1 years time. Assessment & Plan (06/25/2023 2:26 PM EST): Exam is unremarkable for pathology. We can see the patient once a year and will do labs today for baseline. Flu shot will be administered. Immunizations Immunization Administration Dates Next Due DTP 1995,1995,1995 DTaP 02/23/2000,10/25/1996 Hepatitis B 1995,1995,1995 Hib,PRP-T 1995,1995,1995 IPV 02/23/2000 Influenza Quadrivalent MDCK Preservative Free IM 04/25/2019 Influenza Quadrivalent Preservative Free IM 12/07/2022 Influenza Quadrivalent w/ Preservative IM 2016 Influenza Trivalent Preservative Free IM 024 Influenza Trivalent w/ Preservative IM 6 MMR 04/21/1999,06/12/1996 Meningococcal MPSV4 07/16/2009 Polio - OPV 1995,1995,1995 Td (adult),2 Lf Tetanus Toxo id, PF, Adsorbed 06/06/2017,04/02/2009 Varicella 07/16/2009,03/13/1996 Family History Medical History Relation Comments Drug abuse Father Lung cancer Paternal Grandfather Lung cancer Paternal Grandmother Relation Status Comments Brother Alive Father Mother Alive Paternal Grandfather Paternal Grandmother Sister Alive Social History Tobacco Use Types Packs/Day Years Used Date Smoking Tobacco: Never Passive Smoke Exposure: Never Smokeless Tobacco: Never Tobacco Cessation:Counseling Given: Not Answered Alcohol Use Standard Drinks/Week Comments Yes 10 (1 standard drink = 0.6 oz pu re alcohol) Child or Family Care Answer Date Record ed Do you have problems with on e of the following making it difficult for you to work, study, or receive health care? No 06/20/2024 Education Answer Date Recorded Are you interested in help w ith more adult education (for example, completing high school, GED, job training, learning the Croatian language, technical skills, or developing parenting skills)? No 06/20/2024 Are you concerned about learning? Not on file 06/20/2024 No 06/20/2024 Yes 06/20/2024 Food Answer Date Recorded Within the past 6 months we worried whether our food would run out before we got money to buy more. Never True 06/20/2024 Within the past 6 months the food we bought just didn't last and we didn't have enough money to get more. Never True Residential Stability Answer Date Recor ded What is your housing situation today? I have edmundo sing 06/20/2024 How many times have you move d in the past 12 months? Zero (I did not move) 06/20/2024 Paying for Meds Answer Date Recorded Do you have trouble paying for medicines? No 06/20/2024 Paying Utility Bills Answer Date Record ed Do you have trouble paying your heating or elect ricity bill? No 06/20/2024 Transportation Answer Date Recorded Has the lack of transportati on kept you from medical appointments or from getting medications? No 06/20/2024 Unemployment Answer Date Recorded Are you currently unemployed or working on a part-time or temporary basis, and looking for work? No 06/20/2024 Digital Access Answer Date Recorded No 06/20/2024 Yes 06/20/2024 Do you have reliable internet access at home? Ye s 06/20/2024 Do you have a device (e.g., phone, tablet, computer) with a working camera? Yes 06/20/2024 Intimate Partner Violence Answer Date R ecorded Denied Basic Needs Not on file 06/20/2024 In the past 12 months have y ou been in a relationship with a person who hurts, threatens, or tries to control you? No 06/20/2024 Worried food would run out Not on file 06/20 In the past 12 months have y ou been in a relationship with a person who hurts, threatens, or tries to control you? No 06/20/2024 Sex and Gender Information Value Date Recorded Sex Assigned at Not on file Legal Sex Male 10:46 AM EST Gender Identity Not on file Sexual Orientation Not on file Last Filed Vital Signs Vital Sign Reading Time Taken Comments Blood Pressure 110/80 06/26/2024 1:18 PM EST Pulse 75 06/26/2024 1:18 PM EST Temperature 36.6 C (97.8 F) 06/26/2024 1:18 PM EST Respiratory Rate 18 06/26/2024 1:18 PM EST Oxygen Saturation 98% 06/26/2024 1:18 PM EST Inhaled Oxygen Concentration - - Weight 99.1 kg (218 lb 6.4 oz) 06/26/2024 1:18 P M EST Height 181.3 cm (5' 11.38 ) 06/26/2024 1:[address] Body Mass Index 30.14 06/26/2024 1:18 PM EST Plan of Treatment Upcoming Encounters Date Type Department Care Team (Late st Contact Info) Description 06/29/2025 9:45 AM EST Office Visit Emidgio Ordonez [facility] Internal Medicine [address] [facility] [place] [address] Simon Price MD [address] [place] [address] Health Maintenance Due Date Last Done Comments COVID-19 VACCINE (2023-2 5 season) 2024 08/19/2021, 08/06/2020, 07/14/2020 DEPRESSION SCREENING 06/20/2025 06/20/2024, 06/25/2023 Adult Td,Tdap Booster 06/06/2027 06/06/2017 , 04/02/2009 HIB VACCINES Aged Out 1995, 1995, 1995 No longer eligible based on patient's age to complete this topic MENINGOCOCCAL VACCINES (ACWY) Aged Out 07/16/2009 No longer eligible based on patient's age to complete this topic HEPATITIS C SCREENING Completed 06/25/2023 HIV ONE-TIME SCREENING (18-6 5 YEARS) Completed 06/25/2023 SMOKING STATUS SCREENING (On ce After 26 Yrs) Completed 06/26/2024 HEPATITIS A VACCINES Aged Out No long er eligible based on patient's age to complete this topic MENINGOCOCCAL VACCINES (B) Aged Out N o longer eligible based on patient's age to complete this topic PNEUMOCOCCAL VACCINES (0-49 years) Aged Out No longer eligible b ased on patient's age to complete this topic Medical Devices Not on file Procedures Procedure Name Priority Date/Time Associated Diagnosis Comments HEPATITIS C ANTIBODY, QUALITATIVE Routine 06/25/2023 2:29 PM EST Need for hepatitis C screening test from Last 3 Months or Most Recently Relevant to Health Maintenance Results * Hepatitis C antibody, qualitative (06/25/2023 2:29 PM EST) HCV NON-REACTIV E NON-REACTI VE [facility] Blood 06/25/2023 2:29 PM EST 06/25/2023 2:34 PM EST Simon Price MD LAB BLOOD ORDERABLES Final Isrrael lai [address] [place] [address] from Last 3 Months or Most Recently Relevant to Health Maintenance Insurance [facility] Care Teams Back Feeder Plywood Layup Line Relationship Specialty Start Date End Date Simon Price MD [address] [place] [id number] PCP - General Internal Medicine 06/25/23 Additional Source Comments The information contained in this document represents components of the legal health record. It is not the complete legal health record.[facility]
== END 2025-02-19 11:01 | disposition home or self-care (01) ==
LOC: HO.HCC 10:12
PROVIDERS: Visit Provider Internal Medicine
DX: F11.90 Opioid use, unspecified, uncomplicated (principal)

== ENCOUNTER → 2025-02-19 10:12 | Outpatient (BNVA) | payer OTHER, SELFPAY | PROVIDERS: Visit Provider Internal Medicine | DX: F11.90 Opioid use, unspecified, uncomplicated (principal) | CPT/HCPCS: 96372 ==

== ENCOUNTER 2025-03-16 14:52 | Outpatient (AMB) | payer OTHER, SELFPAY ==
--- OUTSIDE RECORDS SUMMARY | 2025-03-16 14:55 | XMS_ITS | Clinical Summary ---
Author Organization [facility] Address [address] [facility] [address] [place] [address] Phone Care Team Providers Care Brake Operator Heavy Duty Name Role Phone Simon Price MD Primary Care Provider [phone] Allergies No known active allergies Medications No [...] DTaP 02/23/2000,10/25/1996 Hepatitis B 1995,1995,1995 Hib,PRP-T 1995,1995,1995 INFLUENZA, SPLIT VIRUS, TRIVALENT PF 06/26/2024 INFLUENZA, SPLIT VIRUS, TRIV ALENT W/ PRESERVATIVE IM 07/13/2016 IPV 02/23/2000 Influenza Quadrivalent MDCK Preservative Free IM 04/25/2019 Influenza Quadrivalent Preservative Free IM 12/07/2022 Influenza Quadrivalent w/ Preservative IM 2016 MMR 04/21/1999,06/12/1996 Meningococcal MPSV4 07/16/2009 Polio - [...] high school, GED, job training, learning the Guamanian language, technical skills, or developing parenting skills)? [...] kg (218 lb 6.4 oz) 06/26/2024 1:18 PM EST Height 181.3 cm (5' 11.38 ) 06/26/2024 1:[address] Body Mass Index 30.14 06/26/2024 1:18 PM EST Plan of Treatment Upcoming Encounters Date Type Department Care Team (Late st Contact Info) Description 06/29/2025 9:45 AM EST Office Visit Emigdio Ordonez [facility] Internal Medicine [address] [place] [address] Simon Price MD [address] [facility] [place] [address] [email or web address] Health Maintenance Due Date Last Done Comments [...] PM EST) HCV NON-REACTIV E NON-REACTI VE [facility] Blood 06/25/2023 2:29 PM EST 06/25/2023 2:34 PM EST us Simon Price MD LAB BLOOD ORDERABLES Final Resul t [address] [address] from Last 3 Months or Most Recently Relevant to Health Maintenance Insurance [facility] Care Teams Brake Operator Heavy Duty Relationship Specialty Start Date End Date Simon Price MD [address] [place] [id number] PCP - General Internal Medicine 06/25/23 Additional Source Comments The information contained in this document represents components of the legal health record. It is not the complete legal health record.[facility]
--- OUTSIDE RECORDS SUMMARY | 2025-03-16 14:55 | XMS_ITS | Encounter Summary ---
Author Organization [facility] Address [address] [place] [address] Phone Care Team Providers Care Speck Dyer Name Role Phone Holger Hamilton MD Primary Care Provider Atul matthews Encounter Details Date Type Department Care Team (Late st Contact Info) Description 05/29/2011 Documentation [facility] [place] Medicine [address] [place] [address] Family Medicine, Physician [address] [place], [place] [address] Social History Tobacco Use Types Packs/Day Years [...] on filedocumented in this encounter Care Teams Speck Dyer Relationship Specialty Start Date End Date Holger Hamilton MD PCP - General 03/05/17 11/01/22 documented as of this encounter
--- NOTE | 2025-03-16 15:09 | A.OFFVIS_ITS ---
Intake Visit Reasons: Vasectomy consult Intake Note: New patient presents today for initial visit for vasectomy consult Urology Medication:None Blood Thinner:None Antibiotic Allergies:None Allergies No Known Allergies (No Known Allergies*) Allergy (Verified 03/16/25 15:10) HPI Comments Details: Silverio is here for vasectomy counselling. He has 2 children. PMH- ADHD, Opiod use disorder. Vasectomy procedure was discussed at length with the patient. He was informed that vasectomy is a safe, permanent, and effective form of control but there are risks involved. It may involve risk of hematoma, procedure failure which is rare, sperm granuloma which may cause mild pain, and congestion which may cause sense of pressure and generally resolves after several weeks. Also discussed is the reported post vasectomy pain syndrome with chronic testicular pain which is uncommon <5% The patient was advised that it is necessary to use other types of control methods for > 12 weeks and until we send semen for analysis to make sure there is no more sperm in the semen. Will schedule out patient procedure with Dr. 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 ADHD Surgical History History of facial surgery Family History Father Substance abuse Mother Anxiety Sister Anxiety Brother Anxiety Depression Social History Alcohol intake: unknown Patient Tobacco Use Status: Former Tobacco user Review of Systems Const All systems reviewed & are unremarkable except as noted in HPI and below Reports no additional complaints Eyes Reports no additional complaints ENT Reports no additional complaints Card Reports no additional complaints Resp Reports no additional complaints GI Reports no additional complaints Reports as per HPI Musc Reports no additional complaints Skin/Breast Reports system reviewed and no additional complaints, except as documented Neuro Reports no additional complaints Psych Reports no additional complaints Endo Reports no additional complaints [place]/Lymph Reports no additional complaints Aller/Immun Reports no additional complaints Physical Exam Const General: healthy appearing, no acute distress and well developed Orientation/consciousness: patient oriented x3 HEENT Head: Yes normocephalic and Yes atraumatic Eyes Conjunctivae: conjunctivae normal Neck Neck: Yes normal visual inspection Chest Chest palpation & inspection: normal inspection of the chest Resp Effort & Inspection: normal respiratory effort GI Inspection: Yes normal to inspection Neuro General: patient oriented x3 Psych Appearance: grossly normal Affect: normal affect Assessment & Plan Assessment & Plan (1) Anxiety about health: Code(s): R45.89 - Other symptoms and signs involving emotional state Category: Medical (2) Encounter for vasectomy counseling: Code(s): Z. - Encounter for other general counseling and advice on contraception Category: Medical Plan Out patient vasectomy with Dr. Barbour Patient Instructions: The patient had an opportunity to ask questions regarding treatment plan. The patient expressed understanding and agreement with the above treatment plan. The patient is aware they should contact our office by phone for worsening of their current condition or the appearance of new symptoms. Compliance is encouraged with any medications and followup testing that is ordered. It is a privilege to be allowed the opportunity to participate in the urologic care of your patient. If you have any questions or concerns regarding treatment for the above conditions please do not hesitate to contact me. The office telephone contact is [phone]. This note is constructed in part using voice recognition software. While every effort has been made to ensure accuracy home care companion errors may have been included. Yours sincerely, Дмитрий Duong MD Coding Level of Care Code New Pt Level 4 (29357) Diagnoses Anxiety about health R45.89 Encounter for vasectomy counseling Z30.
== END 2025-03-16 15:43 | disposition home or self-care (01) ==
LOC: HO.HUSH 14:53
PROVIDERS: Visit Provider Urology
DX: R45.89 Other symptoms and signs involving emotional state (principal); Z30.09 Encounter for other general counseling and advice on contraception
CPT/HCPCS: 99204

== ENCOUNTER 2025-04-13 15:21 | Outpatient (AMB) | payer OTHER, SELFPAY ==
--- OUTSIDE RECORDS SUMMARY | 2025-04-13 15:23 | XMS_ITS | Encounter Summary ---
Author Organization [facility] Address [address] [place] [address] Phone Care Team Providers Care Embedded Software Engineer Name Role Phone Holger Hamilton MD Primary Care Provider Atul matthews Encounter Details Date Type Department Care Team (Late st Contact Info) Description 03/11/2017 Conversion Encounter [facility] - [address] [address] Social History Tobacco Use Types Packs/Day Years Used Date Smoking Tobacco: Never Comments:Never smoker Sex and Gender Information Value Date Recorded Sex Assigned at Not on file Legal Sex Male 4:52 PM EDT Gender Identity Not on file Sexual Orientation Not on file documented as of this encounter Plan of Treatment Not on file documented as of this encounter Visit Diagnoses Not on filedocumented in this encounter Care Teams Embedded Software Engineer Relationship Specialty Start Date End Date Holger Hamilton MD PCP - General 03/05/17 11/01/22 documented as of this encounter
--- OUTSIDE RECORDS SUMMARY | 2025-04-13 15:23 | XMS_ITS | Encounter Summary ---
Author Organization [facility] Address [address] [place] [address] Phone Care Team Providers Care Chipper Machine Operator Name Role Phone Holger Hamilton MD Primary Care Provider Atul matthews Encounter Details Date Type Department Care Team (Late st Contact Info) Description 09/24/2010 Documentation [facility] [place] [address] [place] [address] Family Medicine, Physician [address] [place], [place] [address] Social History Tobacco Use Types Packs/Day Years [...] on filedocumented in this encounter Care Teams Chipper Machine Operator Relationship Specialty Start Date End Date Holger Hamilton MD PCP - General 03/05/17 11/01/22 documented as of this encounter
--- OUTSIDE RECORDS SUMMARY | 2025-04-13 15:23 | XMS_ITS | Encounter Summary ---
Author Organization [facility] Address [address] [place] [address] Phone Care Team Providers Care Roll Up Operator Name Role Phone Holger Hamilton MD Primary Care Provider Atul matthews Encounter Details Date Type Department Care Team (Late st Contact Info) Description 05/29/2011 Documentation [facility] [place] [address] [place] [address] Family Medicine, Physician [address] [place], [place] [address] Social History Tobacco Use Types Packs/Day Years [...] on filedocumented in this encounter Care Teams Roll Up Operator Relationship Specialty Start Date End Date Holger Hamilton MD PCP - General 03/05/17 11/01/22 documented as of this encounter
--- OUTSIDE RECORDS SUMMARY | 2025-04-13 15:23 | XMS_ITS | Clinical Summary ---
Author Organization [facility] Address [address] [place] [address] Phone Care Team Providers Care Career Education Teacher Name Role Phone Unavailable Primary Care Provider Unavailabl e Immunizations Immunization Administration Dates Next Due DTP 1995,1995,1995 DTaP 5 02/23/2000,10/25/1996 Hep B, ped/adol 1995,1995,1995 Hib (PRP-T) 1995,1995,1995 IPV 02/23/2000 MMR 04/21/1999,06/12/1996 Meningococcal Polysaccharide 07/16/2009 OPV 1995,1995,1995 Td (adult) (MBL), 2 Lf tetan us toxoid, PF, adsorbed 04/02/2009 Varicella 07/16/2009,03/13/1996 Family History Relation Name Status Comments Brother Alive Brother: Anxiet y / Depression, Alive and well Father Alive Father: Alive a nd well Mother Alive Mother: Hyperte nsion Other Family history of Asthma Paternal Grandfather Alive Paterna l grandfather: CAD, high cholesterol Sister Alive Sister: Alive a nd well Social History Tobacco Use Types Packs/Day Years Used Date Smoking Tobacco: Never Comments:Never smoker Sex and Gender Information Value Date Recorded Sex Assigned at Not on file Legal Sex Male 4:52 PM EDT Gender Identity Not on file Sexual Orientation Not on file Last Filed Vital Signs Vital Sign Reading Time Taken Comments Blood Pressure 126/59 12/05/2013 12:00 AM EDT Pulse - - Temperature 36.7 C (98 F) 12/05/2013 12:00 AM EDT Respiratory Rate - - Oxygen Saturation - - Inhaled Oxygen Concentration - - Weight 86.5 kg (190 lb 9.6 oz) 12/05/2013 12:00 AM EDT Height 178.4 cm (5' 10.25 ) 06/14/2013 12:00 AM EST Body Mass Index 27.15 06/14/2013 12:00 AM EST Plan of Treatment Health Maintenance Due Date Last Done Comments DTaP,Tdap,and Td Vaccines (6 - Tdap) 04/03/2009 04/02/2009, 02/23/2000, 10/25/1996, Additional history exists HPV Vaccines (1 - 3-dose SCDM series) 2022 Influenza Vaccines (#1) 2025 COVID-19 Vaccine (2023- season) 2025 HIB Vaccines Aged Out 1995, 06/26, 1995 No longer eligible based on patient's age to complete this topic Hepatitis B Vaccines Completed 1995, 1995, 1995 MMR Vaccines Completed 04/21/1999, 06/12/1996 IPV Vaccines Completed 02/23/2000, 08/27, 1995, Additional history exists Varicella Vaccines Completed 07/16/2009, 03/13/1996 Hepatitis A Vaccines Aged Out No long er eligible based on patient's age to complete this topic Men B Vaccine Aged Out No longer elig ible based on patient's age to complete this topic Meningococcal Vaccine Aged Out No michael andree eligible based on patient's age to complete this topic Pneumococcal Vaccine Aged Out No long er eligible based on patient's age to complete this topic
--- OUTSIDE RECORDS SUMMARY | 2025-04-13 15:23 | XMS_ITS | Encounter Summary ---
Author Organization [facility] Address [address] [place] [address] Phone Care Team Providers Care Gambling Dealer Name Role Phone Holger Hamilton MD Primary Care Provider Atul matthews Encounter Details Date Type Department Care Team (Late st Contact Info) Description 08/18/2010 Documentation [facility] [place] Family Medicine [address] [place] [address] Family Medicine, Physician [address] [place], [place] [id number] Social History Tobacco Use Types Packs/Day Years [...] on filedocumented in this encounter Care Teams Gambling Dealer Relationship Specialty Start Date End Date Holger Hamilton MD PCP - General 03/05/17 11/01/22 documented as of this encounter
--- OUTSIDE RECORDS SUMMARY | 2025-04-13 15:23 | XMS_ITS | Clinical Summary ---
Author Organization [facility] Address [address] [employer] [facility] [address] [place] [address] Phone Care Team Providers Care C Web Developer Name Role Phone Simon Price MD Primary Care Provider [phone] Allergies No known active allergies Medications No [...] high school, GED, job training, learning the Mongolian language, technical skills, or developing parenting skills)? [...] 9:45 AM EST Office Visit Emigdio Ordonez [facility] Internal Medicine [address] [place] [address] Simon Price MD [address] [place] [address] [email or web address] Health Maintenance Due Date Last Done Comments INFLUENZA VACCINE (#1) 2025 4, 06/25/2023, 04/25/2019, Additional history exists COVID-19 VACCINE ( season) 2025 08/19/2021, 08/06/2020, 07/14/2020 DEPRESSION SCREENING 06/20/2025 06/20/2024, 06/25/20 23 Adult Td,Tdap Booster 06/06/2027 06/06/2017, 009 HIB VACCINES Aged Out 1995, 06/26, 1995 No longer eligible based on patient's age to complete this topic MENINGOCOCCAL VACCINES (ACWY) Aged Out 07/16/2009 No longer eligible based on patient's age to complete this topic HEPATITIS C SCREENING Completed 06/25/2023 HIV ONE-TIME SCREENING (18-65 YEARS) Completed 06/25/2023 SMOKING STATUS SCREENING (Once After 26 Yrs) Completed 06/26/2024 HEPATITIS A VACCINES Aged Out No long er eligible based on patient's age to complete this topic MENINGOCOCCAL VACCINES (B) Aged Out N o longer eligible based on patient's age to complete this topic PNEUMOCOCCAL VACCINES (0-49 years) Aged Out No longer eligible based on patient's age [...] PM EST) HCV NON-REACTIV E NON-REACTI VE [facility] Blood 06/25/2023 2:29 PM EST 06/25/2023 2:34 PM EST Simon Price MD LAB BLOOD ORDERABLES Final Isrrael t [address] [address] from Last 3 Months or Most Recently Relevant to Health Maintenance Insurance COUNTS [facility]CLUDE [address] [facility]S AT [facility] Care Teams C Web Developer Relationship Specialty Start Date End Date Simon Price MD [address] [place] [phone] [email or web address] PCP - General Internal Medicine 06/25/23 Additional Source Comments The information contained in this document represents components of the legal health record. It is not the complete legal health record.[facility]
--- NOTE | 2025-04-13 15:26 | A.OFFVIS_ITS ---
Vital Signs 04/13/25 15:27 Height 6 ft Weight 216 lb BMI 29.3 BP 132/80 Pulse 76 Pulse Oximetry (%) 96 Intake Visit Reasons: MAT Allergies No Known Allergies (No Known Allergies*) Allergy (Verified 04/13/25 15:28) HPI Comments Details: History of Present Illness The patient is a 30-year-old male presenting with concerns about opioid use and kratom tapering. He is currently down to two kratom doses per day and wishes to reduce further due to worries about withdrawal symptoms. He has sufficient Suboxone and prefers oral administration to manage potential withdrawal. He denies depression and any suicidal or homicidal ideation. The patient has committed to attending counseling to assist in his cessation efforts. Review of Systems - Psychiatric: Denies depression, suicidal ideation, and homicidal ideation. Physical Exam - Vitals- Stable Results Plan Patient was informed and verbally consented to the use of an ambient scribe for clinic note documentation during this visit. 1. Opioid use, unspecified, uncomplicated F11.90 The patient plans to decrease kratom use while managing potential withdrawal with a small amount of Suboxone, using a quarter of a strip or less. He will attend regular counseling sessions and adhere to scheduled appointments for better management. Discussion Notes The patient and I discussed the importance of gradually tapering kratom and managing withdrawal symptoms with Suboxone. I emphasized the effectiveness and safety of using a very small dose, such as a quarter of a strip or less. We agreed that counseling would be beneficial. I advised the patient to maintain regular follow-up appointments rather than walk-in visits for effective monitoring and management continuity. Medical Decision Making The patient has expressed a clear goal to reduce kratom use and manage potential withdrawal symptoms. The decision to use a minimal dose of Suboxone is aimed at mitigating withdrawal during kratom tapering. Counseling is chosen as additional psychological support. Regular follow-ups are recommended to improve treatment adherence and monitor progress. Patient Instructions - Continue reducing kratom use as planned. - Use a quarter of a strip of Suboxone or less if needed for withdrawal symptoms. - Attend regular counseling sessions. - Keep all scheduled appointments. - Reach out for help if experiencing severe withdrawal, depression, or other concerning symptoms. [facility] Medical History Opioid use disorder Other prison (current) drug therapy ADHD Surgical History History of facial surgery Family History Father Substance abuse Mother Anxiety Sister Anxiety Brother Anxiety Depression Social History Alcohol intake: unknown Patient Tobacco Use Status: Former Tobacco user Physical Exam Vital Signs: Last Vital Signs Pulse 76 04/13/25 15:27 BP 132/80 04/13/25 15:27 Pulse Ox 96 04/13/25 15:27 BMI result Body Mass Index 29.3 Assessment & Plan Assessment & Plan (1) Opioid use disorder: Comment: He is using kratom . Code(s): F11.90 - Opioid use, unspecified, uncomplicated Category: Medical Plan: na Coding Level of Care Code Est Pt Level 3 (35024) Diagnoses Opioid use disorder F11.90
[2025-04-13 15:27] VITALS: BP 132/80; PULSE 76; O2SAT 96; BMI 29.3
== END 2025-04-13 15:40 | disposition home or self-care (01) ==
PROVIDERS: Visit Provider Internal Medicine
DX: F11.90 Opioid use, unspecified, uncomplicated (principal)
CPT/HCPCS: 99213

== ENCOUNTER 2025-04-25 14:09 | Outpatient (AMB) | payer OTHER, SELFPAY ==
--- NOTE | 2025-04-25 14:52 | MHC.OFFVIS ---
Vital Signs 04/25/25 14:53 Height 6 ft Weight 216 lb BMI 29.3 BP 122/78 Pulse 56 Pulse Oximetry (%) 96 Intake Visit Reasons: MAT Allergies No Known Allergies (No Known Allergies*) Allergy (Verified 04/25/25 15:17) HPI HPI MAT: Details: History of Present Illness The patient is a 30-year-old male presenting with an evaluation of kratom dependence in the context of opioid use disorder management. The patient transitioned from kratom to Suboxone treatment, with his being aware and supportive of the change. He is currently taking Suboxone 8/2 mg two times a day, effectively managing withdrawal symptoms and cravings. The patient reports no significant symptoms of depression or anxiety, attributing an improvement in mood and outlook to his current Suboxone regimen. He self-reports a mild depressive episode with a score indicating minimal impact. The patient seems to be doing positively with the therapy and is considering injectable forms of his medication as a future option. Review of Systems - Psychiatric: Denies current depression or anxiety - Neurological: Reports stable mood, mild depression score 1 Physical Exam - Vitals- Stable Results Plan Patient was informed and verbally consented to the use of an ambient scribe for clinic note documentation during this visit. 1. Opioid use, unspecified, in remission F11.91 The patient continues his Suboxone (buprenorphine/naloxone) 8/2 mg BID regimen, reporting positive outcomes. Consideration of injectable forms is a future option. A one-month prescription was given, with follow-up planned. 2. Kratom Use Disorder Having transitioned successfully from kratom to Suboxone, no additional interventions are necessary presently. Monitoring will continue alongside opioid disorder management. 3. Depression Remitting The patient shows no current depressive symptoms following reconception to Suboxone. We will monitor for potential recurrence, with interventions if symptoms reappear. Discussion Notes During the visit, I discussed the patient's successful transition from kratom dependence back to Suboxone for opioid use disorder management. The patient exhibits a positive response to the regimen with no current depressive or anxiety symptoms. We discussed the potential benefits and risks of considering injectable Suboxone in the future, focusing on adherence and maintenance of symptom remission. The patient received a one-month supply and will follow up for continued evaluation of treatment response. Medical Decision Making In managing this patient's opioid use disorder and past kratom dependence, I have continued the Suboxone treatment, recognizing its effectiveness in reducing cravings and improving mood. The likely primary diagnosis rests on opioid use disorder, with the treatment goal being sustained remission of symptoms and maintaining abstinence from kratom use. Future consideration of injectable forms could further reinforce adherence. His depression, currently remitting, requires surveillance to detect any recurrence. Patient Instructions - Continue taking Suboxone as prescribed. - Return for a follow-up visit in one month. - Be attentive for any signs of depression or anxiety and report changes. - Consider future injectable treatment options and discuss with the provider. [facility] Medical History Opioid use disorder Other group home (current) drug therapy ADHD Surgical History History of facial surgery Family History Father Substance abuse Mother Anxiety Sister Anxiety Brother Anxiety Depression Social History Alcohol intake: unknown Patient Tobacco Use Status: Former Tobacco user Physical Exam Vital Signs: Last Vital Signs Pulse 56 04/25/25 14:53 BP 122/78 04/25/25 14:53 Pulse Ox 96 04/25/25 14:53 BMI result Body Mass Index 29.3 Assessment & Plan Assessment & Plan (1) Opioid use disorder: Comment: He is using kratom . Code(s): F11.90 - Opioid use, unspecified, uncomplicated Category: Medical Plan na Medications: New buprenorphine-naloxone 8-2 mg (Suboxone) 1 film sublingual BID 60 ea 0RF 30 days Coding Level of Care Code Est Pt Level 3 (88037) Diagnoses Opioid use disorder F11.90
[2025-04-25 14:53] VITALS: BP 122/78; PULSE 56; O2SAT 96; BMI 29.3
--- OUTSIDE RECORDS SUMMARY | 2025-04-25 15:21 | XMS_ITS | Encounter Summary ---
Author Organization [facility] Address [address] [place] [address] Phone Care Team Providers Care Supervisor Melt House Name Role Phone Holger Hamilton MD Primary Care Provider Atul matthews Encounter Details Date Type Department Care Team (Late st Contact Info) Description 09/24/2010 Documentation [facility] [place] [address] [place] [address] Family Medicine, Physician [address] [place], [place] [id number] Social History Tobacco Use Types Packs/Day Years [...] on filedocumented in this encounter Care Teams Supervisor Melt House Relationship Specialty Start Date End Date Holger Hamilton MD PCP - General 03/05/17 11/01/22 documented as of this encounter
--- OUTSIDE RECORDS SUMMARY | 2025-04-25 15:21 | XMS_ITS | Encounter Summary ---
Author Organization [facility] Address [address] [place] [address] Phone Care Team Providers Care Sheet Rock Installer Name Role Phone Holger Hamilton MD Primary Care Provider Atul matthews Encounter Details Date Type Department Care Team (Late st Contact Info) Description 08/18/2010 Documentation [facility] [place] Family Medicine [address] [place] [address] Family Medicine, Physician [address] [place], [place] [address] Social History Tobacco Use Types Packs/Day Years [...] on filedocumented in this encounter Care Teams Sheet Rock Installer Relationship Specialty Start Date End Date Holger Hamilton MD PCP - General 03/05/17 11/01/22 documented as of this encounter
--- OUTSIDE RECORDS SUMMARY | 2025-04-25 15:21 | XMS_ITS | Clinical Summary ---
Author Organization [facility] Address [address] [facility] [address] [place] [address] Phone Care Team Providers Care Pot Filler Name Role Phone Simon Price MD Primary Care Provider [phone] Allergies No known active allergies Medications No [...] high school, GED, job training, learning the Jordanian language, technical skills, or developing parenting skills)? [...] 9:45 AM EST Office Visit Emigdio Ordonez [facility] Internal Medicine [address] [place] [address] Simon Price MD [address] [place] [address] [email or web address] Health Maintenance Due Date Last Done Comments [...] PM EST) HCV NON-REACTIV E NON-REACTI VE [facility] Blood 06/25/2023 2:29 PM EST 06/25/2023 2:34 PM EST Simon Price MD LAB BLOOD ORDERABLES Final Isrrael t [address] [address] from Last 3 Months or Most Recently Relevant to Health Maintenance Insurance [facility] Care Teams Pot Filler Relationship Specialty Start Date End Date Simon Price MD [address] [place] [phone] [email or web address] PCP - General Internal Medicine 06/25/23 Additional Source Comments The information contained in this document represents components of the legal health record. It is not the complete legal health record.[facility]
--- OUTSIDE RECORDS SUMMARY | 2025-04-25 15:21 | XMS_ITS | Clinical Summary ---
Author Organization [facility] Address [address] [place] [address] Phone Care Team Providers Care Compliance Clerk Name Role Phone Unavailable Primary Care Provider [...] 2022 Influenza Vaccines (#1) 2025 COVID-19 Vaccine (2024- season) 2025 HIB Vaccines Aged Out 1995, [...]
--- OUTSIDE RECORDS SUMMARY | 2025-04-25 15:21 | XMS_ITS | Encounter Summary ---
Author Organization [facility] Address [address] [place] [address] Phone Care Team Providers Care It Infrastructure Consultant Name Role Phone Holger Hamilton MD Primary Care Provider Atul matthews Encounter Details Date Type Department Care Team (Late st Contact Info) Description 03/11/2017 Conversion Encounter [facility] - [address] [address] Social History Tobacco Use Types Packs/Day Years [...] on filedocumented in this encounter Care Teams It Infrastructure Consultant Relationship Specialty Start Date End Date Holger Hamilton MD PCP - General 03/05/17 11/01/22 documented as of this encounter
--- OUTSIDE RECORDS SUMMARY | 2025-04-25 15:21 | XMS_ITS | Encounter Summary ---
Author Organization [facility] Address [address] [place] [address] Phone Care Team Providers Care Stabber Name Role Phone Holger Hamilton MD Primary Care Provider Atul matthews Encounter Details Date Type Department Care Team (Late st Contact Info) Description 05/29/2011 Documentation [facility] [place] Family Medicine [address] [place] [address] Family Medicine, Physician [address] [place], [place] [address] Social History Tobacco Use Types Packs/Day Years [...] on filedocumented in this encounter Care Teams Stabber Relationship Specialty Start Date End Date Holger Hamilton MD PCP - General 03/05/17 11/01/22 documented as of this encounter
== END 2025-04-25 15:48 | disposition home or self-care (01) ==
LOC: HO.HCC 14:09
PROVIDERS: Visit Provider Internal Medicine
DX: F11.90 Opioid use, unspecified, uncomplicated (principal)
CPT/HCPCS: 99213

== ENCOUNTER 2025-05-28 13:26 | Outpatient (AMB) | payer OTHER, SELFPAY ==
--- NOTE | 2025-05-28 13:29 | MHC.OFFVIS ---
Vital Signs 05/28/25 13:31 Height 6 ft Weight 220 lb BMI 29.8 Pulse 82 Pulse Source Pulse Oximeter Pulse Oximetry (%) 98 Oxygen Delivery Method Room Air Intake Visit Reasons: MAT Allergies No Known Allergies (No Known Allergies*) Allergy (Verified 05/28/25 13:31) HPI Comments Details: History of Present Illness The patient is a 30-year-old male presenting with a follow-up evaluation for opioid use disorder. He is currently managing this condition with Suboxone, although he expresses difficulty in finding a dosage that sustains his well-being. Previously, he attempted a reduction in his Suboxone dose to 4 mg daily, which has not been satisfactory for maintaining his energy levels. He has ceased using Kratom, following transparency with his spouse about its former use and financial impact. In his professional life, the patient has secured a beneficial contract with his employer, marking an improvement with financial remuneration. His stable vital signs were noted. His acknowledgment of the insufficient effects of his current Suboxone dose highlights the importance of maintaining a proper dosage. These insights were gathered to understand better the patient?s capacity and readiness to manage his condition effectively. Review of Systems - Psychiatric: Reports cessation of Kratom use. - Medication: Reports variable Suboxone dosing; denies optimal energy levels. Physical Exam - Vital Signs- Stable Results Plan Patient was informed and verbally consented to the use of an ambient scribe for clinic note documentation during this visit. 1. Opioid use, unspecified, uncomplicated F11.90 The patient?s opioid use disorder is being managed with Suboxone. I highlighted the importance of consistent dosage to achieve therapeutic efficacy and prevent withdrawal symptoms. He was given a script to take Suboxone 8/2 mg twice daily. Benefits include maintained energy and stable condition, with monitoring for side effects. We discussed a follow-up in a month. Discussion Notes I discussed with the patient the importance of maintaining consistent dosing with Suboxone to ensure effective management of his opioid use disorder. We reviewed the benefits of adhering to a twice-daily 8/2 mg regimen and addressed the importance of mitigating withdrawal symptoms and maintaining energy levels. The potential risks include side effects associated with the medication, and I emphasized monitoring these diligently. We agreed on the current therapeutic approach, understanding that adjustments may be needed in future visits. I advised the patient on the importance of follow-up care and agreed on a follow-up appointment in one month to reassess his condition and adjust treatment as necessary. Medical Decision Making Considering the chronicity and details of the patient's opioid use disorder, it is clear that a stable dosing regimen is crucial. The patient expresses challenges with energy stability on lower Suboxone doses, supporting the decision to ensure adherence to an adequate dosage regimen. The aim is to maintain sufficient buprenorphine levels to prevent withdrawal and enhance the patient?s well-being. Current progressions, including advancements in his work life and cessation of Kratom use, are positive indicators supportive of his treatment. Continued observation and follow-up will guide potential adjustments to his therapeutic approach. Patient Instructions - Take Suboxone 8/2 mg twice daily as prescribed. -Consider Sublocade shot at next visit. - Monitor for any side effects from Suboxone; report any concerns. - Follow up in one month for reassessment. - Maintain transparency with supportive contacts, such as family. - Continue positive lifestyle changes and professional developments. [facility] Medical History Opioid use disorder Other senior care (current) drug therapy ADHD Surgical History History of facial surgery Family History Father Substance abuse Mother Anxiety Sister Anxiety Brother Anxiety Depression Social History Alcohol intake: unknown Patient Tobacco Use Status: Former Tobacco user Physical Exam Vital Signs: Last Vital Signs Pulse 82 05/28/25 13:31 Pulse Ox 98 05/28/25 13:31 Oxygen Delivery Method Room Air 05/28/25 13:31 BMI result Body Mass Index 29.8 Assessment & Plan Assessment & Plan (1) Opioid use disorder: Comment: He is using kratom . Code(s): F11.90 - Opioid use, unspecified, uncomplicated Category: Medical Plan as above Coding Level of Care Code Est Pt Level 3 (38434) Diagnoses Opioid use disorder F11.90
[2025-05-28 13:31] VITALS: PULSE 82; O2SAT 98; BMI 29.8
== END 2025-05-28 14:23 | disposition home or self-care (01) ==
LOC: HO.HCC 13:26
PROVIDERS: Visit Provider Internal Medicine
DX: F11.90 Opioid use, unspecified, uncomplicated (principal)
CPT/HCPCS: 99213

== ENCOUNTER 2025-06-27 14:52 | Outpatient (AMB) | payer OTHER, SELFPAY ==
[2025-06-27 15:00] VITALS: PULSE 76; O2SAT 98; BMI 30.2
--- NOTE | 2025-06-27 15:00 | A.OFFVIS_ITS ---
Vital Signs 06/27/25 15:00 Height 6 ft Weight 223 lb BMI 30.2 Pulse 76 Pulse Source Pulse Oximeter Pulse Oximetry (%) 98 Oxygen Delivery Method Room Air Intake Visit Reasons: MAT Allergies No Known Allergies (No Known Allergies*) Allergy (Verified 06/27/25 15:00) HPI Comments Details: History of Present Illness The patient is a 30 year old male presenting for evaluation for opioid use disorder. He has not used Kratom for about a month or more and reports feeling well with no complaints. His family life is reported to be good. 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 Physical Exam Exam Exam: Physical Exam - Vital Signs: Stable. Vital Signs: Last Vital Signs Pulse 76 06/27/25 15:00 Pulse Ox 98 06/27/25 15:00 Oxygen Delivery Method Room Air 06/27/25 15:00 BMI result Body Mass Index 30.2 Assessment & Plan Assessment & Plan (1) Opioid use disorder: Comment: He is using kratom . Code(s): F11.90 - Opioid use, unspecified, uncomplicated Category: Medical Plan Plan Patient was informed and verbally consented to the use of an ambient scribe for clinic note documentation during this visit. 1. Opioid use, unspecified, uncomplicated F11.90 The patient is doing well, has abstained from Kratom for about a month, and will continue treatment with buprenorphine 8/2 mg taken twice a day. A 30-day supply of the medication will be provided. A follow-up visit is scheduled in one month. Discussion Notes I evaluated the patient for opioid use disorder and noted he is doing well, having abstained from Kratom for about a month. I will provide him with a one- month supply of buprenorphine and have scheduled a follow-up appointment in one month to reassess his progress. Medical Decision Making The patient is seen for management of opioid use disorder. He reports he is doing well, has been abstinent from [facility] for approximately one month, has no complaints, and has stable vital signs. Based on his stability and continued abstinence, the decision is to continue his current medication regimen. He will be provided a 30-day prescription of buprenorphine 8/2 mg BID and will follow up in one month for re-evaluation. Patient Instructions - Continue taking your buprenorphine medication, 8/2 mg twice a day, as prescribed. - Please return for your scheduled follow-up appointment in one month. Medications: New buprenorphine-naloxone 8-2 mg (Suboxone) 1 film sublingual BID 60 ea 0RF 30 days Coding Level of Care Code Est Pt Level 3 (02168) Diagnoses Opioid use disorder F11.90
--- OUTSIDE RECORDS SUMMARY | 2025-06-27 17:45 | XMS_ITS | Encounter Summary ---
Author Organization [facility] Address [address] [place] [address] Phone Care Team Providers Care Dispatcher Radioactive Waste Disposal Name Role Phone Holger Hamilton MD Primary Care Provider Atul matthews Encounter Details Date Type Department Care Team (Late st Contact Info) Description 08/18/2010 Documentation [facility] [place] Family Medicine [address] [place] [address] Family Medicine, Physician [address] [place], [place] [address] Social History Tobacco Use Types Packs/Day Years [...] on filedocumented in this encounter Care Teams Dispatcher Radioactive Waste Disposal Relationship Specialty Start Date End Date Holger Hamilton MD PCP - General 03/05/17 11/01/22 documented as of this encounter
--- OUTSIDE RECORDS SUMMARY | 2025-06-27 17:45 | XMS_ITS | Clinical Summary ---
Author Organization [facility] Address [address] [place] [address] Phone Care Team Providers Care Instrumentation And Controls Designer Name Role Phone Unavailable Primary Care Provider [...]
--- OUTSIDE RECORDS SUMMARY | 2025-06-27 17:45 | XMS_ITS | Encounter Summary ---
Author Organization [facility] Address [address] [place] [address] Phone Care Team Providers Care Road Grader Name Role Phone Holger Hamilton MD Primary Care Provider Atul matthews Encounter Details Date Type Department Care Team (Late st Contact Info) Description 05/29/2011 Documentation [facility] [place] [address] [place] [address] Family Medicine, Physician [address] [place], [place] [address] Social History Tobacco Use Types Packs/Day Years [...] on filedocumented in this encounter Care Teams Road Grader Relationship Specialty Start Date End Date Holger Hamilton MD PCP - General 03/05/17 11/01/22 documented as of this encounter
--- OUTSIDE RECORDS SUMMARY | 2025-06-27 17:45 | XMS_ITS | Encounter Summary ---
Author Organization [facility] Address [address] [place] [address] Phone Care Team Providers Care Planner Internship Name Role Phone Holger Hamilton MD Primary Care Provider Atul matthews Encounter Details Date Type Department Care Team (Late st Contact Info) Description 09/24/2010 Documentation [facility] [place] [address] [place] [address] Family Medicine, Physician [address] [place], [place] [id number] Social History Tobacco Use Types Packs/Day Years [...] on filedocumented in this encounter Care Teams Planner Internship Relationship Specialty Start Date End Date Holger Hamilton MD PCP - General 03/05/17 11/01/22 documented as of this encounter
--- OUTSIDE RECORDS SUMMARY | 2025-06-27 17:45 | XMS_ITS | Clinical Summary ---
Author Organization [facility] Address [address] [facility] [address] [place] [address] Phone Care Team Providers Care Noxious Weeds And Pest Inspector Name Role Phone Simon Price MD Primary Care Provider [phone] Allergies No known active allergies Medications No [...] high school, GED, job training, learning the [place] language, technical skills, or developing parenting skills)? [...] 9:45 AM EST Office Visit [facility] [address] [place] [address] Simon Price MD [address] [facility] [place] [address] [email or web address] Health Maintenance Due Date Last Done Comments INFLUENZA VACCINE (#1) 2025 4, 06/25/2023, 04/25/2019, Additional history exists COVID-19 VACCINE (2024- season) 2025 08/19/2021, 08/06/2020, 07/14/2020 DEPRESSION SCREENING [...] PM EST) HCV NON-REACTIV E NON-REACTI VE [facility] Blood 06/25/2023 2:29 PM EST 06/25/2023 2:34 PM EST us Simon Price MD LAB BLOOD BKR ORDERABLES Final R esult [address] [id number] from Last 3 Months or Most Recently Relevant to Health Maintenance Insurance [facility] Care Teams Noxious Weeds And Pest Inspector Relationship Specialty Start Date End Date Simon Price MD [address] [place] [phone] [email or web address] PCP - General Internal Medicine 06/25/23 Additional Source Comments The information contained in this document represents components of the legal health record. It is not the complete legal health record.[facility]
--- OUTSIDE RECORDS SUMMARY | 2025-06-27 17:45 | XMS_ITS | Encounter Summary ---
Author Organization [facility] Address [address] [place] [address] Phone Care Team Providers Care Pizza Maker Name Role Phone Holger Hamilton MD Primary Care Provider Atul matthews Encounter Details Date Type Department Care Team (Late st Contact Info) Description 03/11/2017 Conversion Encounter [facility] - [address] [address] Social History Tobacco Use Types Packs/Day Years [...] on filedocumented in this encounter Care Teams Pizza Maker Relationship Specialty Start Date End Date Holger Hamilton MD PCP - General 03/05/17 11/01/22 documented as of this encounter
== END 2025-06-27 15:46 | disposition home or self-care (01) ==
LOC: HO.HCC 14:52
PROVIDERS: Visit Provider Internal Medicine
DX: F11.90 Opioid use, unspecified, uncomplicated (principal)
CPT/HCPCS: 99213